=== PATIENT | male | born 1950 | race Caucasian/White ===

== ENCOUNTER 2018-08-23 05:35 | Inpatient (IN) ==
--- NOTE | 2018-08-06 15:19 | PAT Medication Instructions ---
Medication Instructions Date of Service August 06, 2018 Home Medications acetaminophen [Tylenol 8 Hour] 1,300 mg PO Q12H PRN aspirin [Aspirin Low Dose] 81 mg PO DAILY clopidogrel 75 mg PO QAM duloxetine 30 mg PO DAILY gabapentin 300 mg PO BID insulin glargine [Lantus U-100 Insulin] 30 unit SUBCUT BID metformin 1,000 mg PO BID ggjxymoe-kml-JW-lycopen-lutein [Centrum Silver Men] 1 tab PO HS naproxen sodium [Aleve] 220 mg PO BID PRN omeprazole 20 mg PO QAM sitagliptin [Januvia] 100 mg PO DAILY ASK your surgeon for instructions naproxen sodium [Aleve] 220 mg PO BID PRN ASK your prescriber and surgeon aspirin [Aspirin Low Dose] 81 mg PO DAILY clopidogrel 75 mg PO QAM DO NOT take the morning of surgery metformin 1,000 mg PO BID sitagliptin [Januvia] 100 mg PO DAILY Take morning of surgery With a small sip of water, OTHERWISE NOTHING TO EAT OR DRINK AFTER MIDNIGHT: acetaminophen [Tylenol 8 Hour] 1,300 mg PO Q12H PRN (okay to take up to 4 hours prior to surgery if needed) duloxetine 30 mg PO DAILY gabapentin 300 mg PO BID omeprazole 20 mg PO QAM Take evening before surgery acetaminophen [Tylenol 8 Hour] 1,300 mg PO Q12H PRN (if needed) gabapentin 300 mg PO BID insulin glargine [Lantus U-100 Insulin] 30 unit SUBCUT BID metformin 1,000 mg PO BID Centrum Silver Men 1 tab PO HS Insulin Dependent Diabetic Patients * Test your blood sugar the morning of surgery * If Blood Sugar is GREATER THAN 150, take HALF of your regular dose of: insulin glargine [Lantus U-100 Insulin] take 15 units * If Blood Sugar is LESS THAN 150, DO NOT TAKE ANY: insulin glargine [Lantus U- 100 Insulin] Other Notes If you have any questions please call us at [phone] or [phone] or [phone] or [phone]
--- NOTE | 2018-08-09 08:23 | Anesthesiology Consultation ---
Date of Service August 09, 2018 Assessment & Plan (1) Encounter for pre-operative examination: - No previous anesthesia records available. - Patient to hold ASA and Plavix for 7 days prior to surgery. Chart Review Chart Review: Acceptable Risk for Surgery and Patient seen in Pre Admission Testing Consults Requested medical & cardiac (Dr. Resendiz (08/13/18) & Dr. Elizabeth (06/18/18)) Patient was seen by cardio on 06/18 for follow up visit and preoperative evaluation. Per note from that visit, "Spine surgery is considered intermediate risk. The patient has had complete revascularization, making his risk of myocardial ischemia low. Will obtain echo to check EF. If not severely abnormal (it was 50-55%), then he will be considered low risk for cardiac complication of intended surgery. We will recommend he continue on beta fadi and statin perioperatively." Patient was seen by PCP on 08/13 for preoperative evaluation. Per note from that visit, "I agree with cardio the pt is intermediate risk for the upcoming procedure and recommend close cardiac monitoring in the perioperative period." Teaching & Discussion Pre-Anesthesia Teaching/Discussion Notes: Instructed NPO after midnight before surgery, except medications with 15 cc of water. Medication instructions provided according to the PAT guidelines. History Surgery Operation Date: 08/23/18 07:45 Proposed Procedures p L3-L5 Decompression and Fusion, Spinal Cord Monitoring - Vikas Castellon DO Height/Weight Height: 5 ft 8 in Weight: 101.7 kg Allergies Allergy/AdvReac Type Severity Reaction Status Date / Time No Known Allergies Allergy Verified 08/05/18 08:41 Medications Home Medications Medication Instructions Recorded Confirmed Last Taken acetaminophen [Tylenol 8 Hour] 1,300 mg PO Q12H PRN 08/05/18 08/05/18 Unknown aspirin [Aspirin Low Dose] 81 mg PO DAILY 08/05/18 08/05/18 Unknown clopidogrel 75 mg PO QAM 08/05/18 08/05/18 Unknown duloxetine 30 mg PO DAILY 08/05/18 08/05/18 Unknown gabapentin 300 mg PO BID 08/05/18 08/05/18 Unknown insulin glargine [Lantus U-100 30 unit SUBCUT BID 08/05/18 08/05/18 Unknown Insulin] metformin 1,000 mg PO BID 08/05/18 08/05/18 Unknown fawmbhyt-sca-WF-lycopen-lutein 1 tab PO HS 08/05/18 08/05/18 Unknown [Centrum Silver Men] naproxen sodium [Aleve] 220 mg PO BID PRN 08/05/18 08/05/18 Unknown omeprazole 20 mg PO QAM 08/05/18 08/05/18 Unknown sitagliptin [Januvia] 100 mg PO DAILY 08/05/18 08/05/18 Unknown Past Medical History Medical History CAD (coronary artery disease) STENTS X3 (07/2017)- ON PLAVIX Chronic back pain Degenerative disc disease Diabetes mellitus, type 2 IDDM GERD (gastroesophageal reflux disease) Myocardial Infarction 07/2017 Osteoarthritis Exercise / Class Metabolic Activity III < 4 Walking/Shop/Light housework (Limited due to back pain. 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 Able to slowly climb FOS. Denies CP or SOB. ) Past Family History Family History Grandmother Family history of diabetes mellitus Sister Family history of diabetes mellitus Past Surgical History Surgical History History of cardiac cath X3 STENTS - JULY 2017 History of cataract surgery History of cholecystectomy History of colonoscopy History of esophagogastroduodenoscopy (EGD) History of open reduction and internal fixation (ORIF) procedure ANKLE (LEFT) S/P trigger finger release LEFT 4TH Past Anesthesia History No Hx of Anesthesia Complications and No Family Hx of Anesthesia Complications History of PONV No Hx of PONV and Hx of Motion Sickness (Rarely) Social History Smoking Status: Never smoker Do You Dip or Chew Tobacco: No Hx Alcohol Use: Yes alcohol intake frequency: holidays/special occasions only Hx Substance Use: No substance use type: does not use Review of Systems Patient denies chest pain, shortness of breath, dyspnea on exertion, cough, wheezing, palpitations. +Joint Pain (Hands, Back, Legs) +Acid Reflux (controlled with current medications) Physical Exam Vital Signs BP: 150/83 P: 84 R: 16 T: 98.2 SPO2: 98% on RA Constitutional + obese ENMT Thyromental Distance: > or= 3.5 Finger Breadths (4) Mallampati Class: II Neck normal visual inspection, trachea midline and + facial hair (Advised - agreed to trim james); neck extension not limited Respiratory normal respiratory effort Auscultation: lungs clear to auscultation bilaterally Cardiovascular Rate/Rhythm: regular rate and regular rhythm Heart Sounds: no murmur Vessels: no carotid bruit Neurologic moves all extremities Psychiatric Orientation: alert and oriented x 3 Testing Laboratory Results 08/09/18 08:44 08/09/18 08:44 PT 10.3 Seconds (9.0-12.0) 08/09/18 08:44 INR 1.0 (0.9-1.1) 08/09/18 08:44 APTT 25.8 Seconds (21.0-31.0) 08/09/18 08:44 Hemoglobin A1c 7.0 % (4.5-5.6) H 08/09/18 08:44 Blood Type B Positive 08/09/18 08:44 Antibody Screen NEGATIVE 08/09/18 08:44 Electrocardiogram Date: 08/09/18 Findings: + NSR @ (91) Incomplete RBBB Chest X-Ray Date: 08/09/18 Findings: + NAD FINDINGS: Cardiomediastinal and hilar silhouettes are within normal limits. There is no pneumothorax, pleural effusion, focal airspace consolidation or overt pulmonary edema. Cholecystectomy clips noted about the upper abdomen. Degenerative changes of the shoulders and spine. IMPRESSION: No acute process. Echocardiogram Date: 07/14/18 EF: 50-55% Other Findings: + LVH (Moderate) Moderate LVH Normal wall motion Grossly normal left ventricular systolic function There is mild mitral regurgitation, trace to mild tricuspid regurgitation, and pulmonic insufficiency Normal pulmonary artery pressures Mild diastolic dysfunction with impaired relaxation (Grade I) Cardiac Catheterization Date: 08/02/17 Conclusion: 1. Multivessel CAD with borderline obstructive disease of the LAD, o bstructive disease of the OM2 and a subtotaled RCA. 2. Successful PCI and stenting of the proximal to mid RCA with a 2.5 x 30 drug-eluting stent. 3. Mild to moderately depressed LV function with estimated EF 40% and anterolateral hypokinesis. 4. No significant aortic stenosis by pullback technique. Complications: None Recommendations: 1. Dual antiplatelet therapy with aspirin and Brilinta for at least one year if not longer 2. Will most likely discharge and discuss options regarding the circumflex disease and LAD disease as an outpatient. Discussion with CT surgery and a heart team approach suggests that minimally invasive direct CABG of the LAD and diagonal is feasible. Could also consider stenting the circumflex.
--- NOTE | 2018-08-09 09:26 | XRay Report ---
XR chest Pre-admission PA/Lat HISTORY: 68 years-old Male pat preoperative exam. No acute chest complaints COMPARISON: None available TECHNIQUE: PA and lateral views of the chest FINDINGS: Cardiomediastinal and hilar silhouettes are within normal limits. There is no pneumothorax, pleural e ffusion, focal airspace consolidation or overt pulmonary edema. Cholecystectomy clips noted about the upper abdomen. Degenerative changes of the shoulders and spine. IMPRESSION: No acute process. The above report was generated using voice recognition software. It may contain grammatical, syntax o r spelling errors. Electronically signed by: Abel Dodd M.D. 08/09/2018 9:25 AM
[2018-08-09 12:34] LABS: Basophils # (auto) 0.03 K/uL (0-0.2); Basophils % (auto) 0.5 %; Eosinophils # (auto) 0.23 K/uL (0-0.5); Hematocrit (blood only) 38.6 % (42-52); Hemoglobin 13.3 g/dL (14.0-18.0); Immature Granulocytes # (auto) 0.01 K/uL (0.00-0.02); Immature Granulocytes % (auto) 0.2 %; Lymphocytes # (auto) 1.27 K/uL (1.2-3.4); Lymphocytes % (auto) 21.8 %; Mean Corpuscular Hgb Conc 34.5 g/dL (32-36); Mean Corpuscular Volume 91.7 fL (80-100); Mean Platelet Volume 10.4 fL (7.4-10.4); Monocytes # (auto) 0.58 K/uL (0.11-0.59); Neutrophils % (auto) 63.5 %; Platelet Count 214 K/uL (130-400); RDW Coefficient of Variation 13.2 % (11.5-14.5); RDW Standard Deviation 44.1 fL (36.4-46.3); Red Blood Count 4.21 M/uL (4.7-6.1); White Blood Count 5.82 K/uL (4.8-10.8)
[2018-08-09 12:39] LABS: BUN Creatinine Ratio 15.5 (10-20); Calcium 8.4 mg/dl (8.5-10.1); Creatinine Clr Calc Pharmacy 86.6 ml/min; Est GFR (African American) 93.9; Potassium 4.3 mmol/L (3.5-5.1)
[2018-08-09 12:52] LABS: Partial Thromboplastin Time 25.8 Seconds (21.0-31.0); Prothrombin Time 10.3 Seconds (9.0-12.0)
[2018-08-09 13:29] LABS: Estimated Average Glucose 154 mg/dl
[2018-08-23] MEDS ORDERED: LR 15ML/HR IV SCH (06:00)
[2018-08-23] MEDS ORDERED: CEFAZOLIN 2000MG 2,000 MG/15 ML SYR IV SCH (06:00)
[2018-08-23] MEDS ORDERED: ACETAMINOPHEN 500 MG TAB PO SCH (06:00)
[2018-08-23] MEDS ORDERED: CeleBREX 200 MG CAP PO SCH (06:00)
[2018-08-23] MEDS ORDERED: GABAPENTIN 300 MG CAP PO SCH (06:00)
[2018-08-23] MEDS ORDERED: MoRPHine SULFATE 10 MG/ML CARP/VIAL IV PRN (06:47)
[2018-08-23] MEDS ORDERED: ATROPINE SULFATE 0.1 MG/ML 10ML SYR IV PRN (06:47)
[2018-08-23] MEDS ORDERED: ePHEDrine sulfate 50 MG/ML AMP IV PRN (06:47)
[2018-08-23] MEDS ORDERED: fentaNYL citrate 100 MCG/2 ML VIAL IV PRN (06:47)
[2018-08-23] MEDS ORDERED: ONDANSETRON INJ 2 MG/ML 2 ML VIAL IV PRN ×2 (06:47→11:57)
[2018-08-23] MEDS ORDERED: MIDAZOLAM HCL 1 MG/ML 2ML VIAL ONE (06:50)
[2018-08-23] MEDS ORDERED: fentaNYL citrate 100 MCG/2 ML VIAL ONE ×2 (06:50→08:35)
[2018-08-23] MEDS ORDERED: BACITRACIN INJ 50,000 UNIT VIAL ONE (06:59)
[2018-08-23] MEDS ORDERED: BUPIVACAINE/EPINEPHRINE 0.5% MPF 1:200,000 30 ML VIAL ONE (06:59)
[2018-08-23] MEDS ORDERED: ASPIRIN 81 MG ECTAB PO ONE (07:34)
--- NOTE | 2018-08-23 07:43 | History & Physical Bridge Note ---
Date of Service August 23, 2018 History & Physical Bridge Note I have examined the patient, reviewed the History & Physical and in the interval since the performance of the History & Physical I have noted the following changes of clinical significance: no changes noted
--- NOTE | 2018-08-23 07:45 | History & Physical Report ---
Date of Service August 23, 2018 Assessment & Plan (1) Spinal stenosis, lumbar region with neurogenic claudication: L3-L5 decompression and fusion Present on Admission?: Yes History of Present Illness Chief Complaint: Back and bilateral leg pain Primary Care Provider: Joel Resendiz This is a 68-year-old male who presents with chronic persistent back and bilateral leg pain. After failing extensive course of nonoperative care is here for surgical intervention. Allergies Allergy/AdvReac Type Severity Reaction Status Date / Time No Known Allergies Allergy Verified 08/23/18 06:03 Home Medications Home Medications Medication Instructions Recorded Confirmed Type acetaminophen [Tylenol 8 Hour] 1,300 mg PO Q12H PRN 08/05/18 08/23/18 History aspirin [Aspirin Low Dose] 81 mg PO DAILY 08/05/18 08/23/18 History clopidogrel 75 mg PO QAM 08/05/18 08/23/18 History duloxetine 30 mg PO DAILY 08/05/18 08/05/18 History gabapentin 300 mg PO BID 08/05/18 08/05/18 History insulin glargine [Lantus U-100 15 unit SUBCUT BID 08/05/18 08/23/18 History Insulin] metformin 1,000 mg PO BID 08/05/18 08/23/18 History fvacgpvq-iuu-YH-lycopen-lutein 1 tab PO HS 08/05/18 08/23/18 History [Centrum Silver Men] naproxen sodium [Aleve] 220 mg PO BID PRN 08/05/18 08/23/18 History omeprazole 20 mg PO QAM 08/05/18 08/05/18 History sitagliptin [Januvia] 100 mg PO DAILY 08/05/18 08/05/18 History Past Med/Surg History Surgical History History of cardiac cath X3 STENTS - JULY 2017 History of cataract surgery History of cholecystectomy History of colonoscopy History of esophagogastroduodenoscopy (EGD) History of open reduction and internal fixation (ORIF) procedure ANKLE (LEFT) S/P trigger finger release LEFT 4TH Family History Grandmother Family history of diabetes mellitus Sister Family history of diabetes mellitus Social History Preferred Language: [place] Communication Ability: Effective Loss Control Consultant Required: No Beliefs That Will Affect Care: None Current Living Situation: Spouse Other Information That Helps Us Care for You: No Feels Safe at Home: Yes Safety Concerns: Feels Safe At This Time Smoking Status: Never smoker Do You Dip or Chew Tobacco: No Second Hand Exp osure: No Tobacco Cessation Education Requested by Patient: No Hx Alcohol Use: Yes Hx Substance Use: No Physical Exam Physical Exam: Patient is alert and oriented neurologically intact. Results & Data Vital Signs (Past 12 Hours) Vital Signs Temp Pulse Resp BP Pulse Ox 08/23/18 06:08 37.2 C 98 H 20 163/97 H 99
[2018-08-23] MEDS ORDERED: ALBUMIN HUMAN 5% 12.5 GM/250 ML VIAL IV ONE (08:26)
[2018-08-23] MEDS ORDERED: ROCURONIUM BROMIDE 10 MG/ML 5 ML VIAL ONE (08:34)
[2018-08-23] MEDS ORDERED: ONDANSETRON INJ 2 MG/ML 2 ML VIAL ONE (08:34)
[2018-08-23] MEDS ORDERED: ePHEDrine sulfate 50 MG/ML SYR ONE (08:34)
[2018-08-23] MEDS ORDERED: PROPOFOL IV EMULSION 10 MG/ML 20 ML VIAL IV ONE (08:34)
[2018-08-23] MEDS ORDERED: DEXAMETHASONE SOD INJ 4 MG/ML VIAL ONE (08:34)
[2018-08-23] MEDS ORDERED: PHENYLEPHRINE 100MCG/ML 5ML SYR ONE (08:34)
[2018-08-23] MEDS ORDERED: PHENYLEPHRINE HCL 10 MG/ML VIAL ONE (08:34)
[2018-08-23] MEDS ORDERED: LIDOCAINE HCL 2% 2 ML VIAL/AMP(20MG/ML) INFIL ONE (08:34)
[2018-08-23] MEDS ORDERED: HYDROmorphone INJ 2 MG/ML SYR/VIAL ONE (08:36)
[2018-08-23] MEDS ORDERED: GLYCOPYRROLATE 0.2 MG/ML VIAL ONE (09:04)
[2018-08-23] MEDS ORDERED: NEOSTIGMINE METHYLSULFATE 1 MG/ML 10ML VIAL ONE (09:04)
[2018-08-23] MEDS ORDERED: LARYING-O-JET KIT (LTA) ONE (09:55)
[2018-08-23] MEDS ORDERED: FLOSEAL HEMOSTATIC MATRIX 10ML TOP ONE (10:09)
--- NOTE | 2018-08-23 10:13 | Operative Report ---
Post Operative Report Pre & Post Diagnosis Operation Date: 08/23/18 07:45 Pre-Op Diagnosis: Spinal stenosis, lumbar region with neurogenic claudication Spondylolisthesis L3-4 Post-Op Diagnosis: Same Procedure Operation Date: 08/23/18 07:45 Actual Procedures #1 lumbar decompression with bilateral medial facetectomies and foraminotomies L2-3 L3-4 L4-5. #2 posterior spinal fusion L3-4 L4-5 per #3 placement posterior instrumentation L3-4 L4-5 per #4 interbody fusion L4-5 per #5 placement of titanium 11 x 26 mm cage 5 per #6 placement of local autograft in the posterior lateral gutters per #7 placement infuse collagen sponge, with master graft in the posterior lateral gutters and ostial amp and interbody space. Surgeon Vikas Castellon, DO Torch Solderer Demetria Collado Estimated Blood Loss 400 Findings See Below The patient is 5 foot 8 inches tall weighing 101.7 kg with a BMI of 34. Patient's significant body habitus contributed to significant technical difficulty requiring her deepest retractors and longer Kerrisons in order to perform his procedure. This added at least 30% increase in operative time. Specimens None Indications This is a 68-year-old male who presents with above-mentioned diagnosis after failing extensive course of nonoperative care is here for the above-mentioned procedure. Description of Procedure Patient was met with identified and informed consent obtained. Patient was then taken to the operative suite underwent intubation placed in a prone position the Omar table on top of the Kian frame. All bony prominences well-padded eyes inspected to ensure no external pressure placed upon. This point the lumbar spine was prepped and draped in the normal sterile fashion. Sharp dissection with the assistance of Bovie cautery was performed down to and exposing the lamina transverse processes of L3-L4 and L5 bilaterally. From a caudal cephalad fashion complete laminectomy of L4 L3 and partial laminectomy of L2 was performed including bilateral medial facetectomies and foraminotomies to address severe stenosis. Pedicle screws were then placed in L3-L4-L5 bilaterally with assistance of fluoroscopy and the probably size parul placed. By way of a transforaminal approach on the right complete discectomy of L3-4-5 was performed endplates curetted to subcortical bleeding bone and a 11 x 26 mm titanium cage filled ostium bone graft tapped in position. The rods were then locked in final position bilaterally. The transverse processes of L3 L4-5 bur to subcortical bleeding bone. Collagen sponge master graft local autograft placed in the posterior lateral gutters. Inserted. Incision was then closed with 1 Vicryl fascia 2-0 Vicryl subcutaneous and 4-0 Monocryl for final skin closure. Steri- Strip sterile dressings placed. Patient will continue to PACU stable condition. Please note Demetria Collado present on the entire procedure involved the patient positioning complex portions of the surgery and final skin closure. Lastly spinal cord monitoring was utilized and no changes noted. I attest to the content of the Intraoperative Record and any orders documented therein. Any exceptions are noted below.
--- NOTE | 2018-08-23 10:14 | Fluoroscopy Report ---
FL lumbar spine 2-3V CLINICAL HISTORY: 68 years-old Male presenting with L3-L5 DECOMP/FUSION. TECHNIQUE: 2 fluoroscopic image(s) recorded as part of an intraoperative procedure. COMPARISON: None. FINDINGS/IMPRESSION: Posterior bilateral transpedicular Schoenrock fixation of L3-L5 with interbody spacer at L4-5 and aguirre inectomy defects at L3 to L5. Please see surgical report for further details. Fluoroscopy dosage (mGy): 15.85. Fluoroscopy time: 18.5 seconds. Number or time of high level fluoroscopy (HLF), digital spot, or digital subtraction images: 0. Electronically signed by: Alejandro Shelby M.D. 08/23/2018 10:13 AM
[2018-08-23] MEDS ORDERED: METOPROLOL TARTRATE 1 MG/ML VIAL IV ONE (10:41)
[2018-08-23] MEDS ORDERED: METOPROLOL TARTRATE 1 MG/ML VIAL IV STA (11:04)
[2018-08-23] MEDS ORDERED: FAMOTIDINE 20 MG TAB PO PRN (11:57)
[2018-08-23] MEDS ORDERED: BISACODYL 10 MG SUPP PR PRN (11:57)
[2018-08-23] MEDS ORDERED: SOD PHOSPHATE/SOD BIPHOSPHATE ENEMA 132 ML BTL PR PRN (11:57)
[2018-08-23] MEDS ORDERED: ACETAMINOPHEN 1300 MG PO PRN (11:57)
[2018-08-23] MEDS ORDERED: ONDANSETRON 4 MG TAB PO PRN (11:57)
[2018-08-23] MEDS ORDERED: ALUMINUM/MAGNESIUM SUSP 30 ML UDC PO PRN (11:57)
[2018-08-23] MEDS ORDERED: LORazepam 0.5 MG TAB PO PRN (11:57)
[2018-08-23] MEDS ORDERED: DO NOT ADMINISTER PNEUMOCOCCAL VACCINE PRN (11:57)
[2018-08-23] MEDS ORDERED: HYDROmorphone INJ 0.5 MG/0.5 ML SYR IV PRN (11:57)
[2018-08-23] MEDS ORDERED: LORazepam 0.5 MG/1 ML VIAL IV PRN (11:57)
[2018-08-23] MEDS ORDERED: ACETAMINOPHEN 1,000 MG/100 ML VIAL IV PRN (11:57)
[2018-08-23] MEDS ORDERED: ACETAMINOPHEN 500 MG TAB PO PRN (11:57)
[2018-08-23] MEDS ORDERED: MAGNESIUM HYDROXIDE SUSP 30 ML UDC PO PRN (11:57)
[2018-08-23] MEDS ORDERED: PROMETHAZINE HCL 12.5 MG in SODIUM CHLORIDE 0.9% 50 ML IV PRN (11:57)
[2018-08-23] MEDS ORDERED: METOCLOPRAMIDE HCL INJ 5 MG/ML 2 ML VIAL IV PRN (11:57)
[2018-08-23] MEDS ORDERED: DO NOT ADMINISTER FLU VACCINE PRN (11:57)
[2018-08-23] MEDS: SODIUM CHLORIDE 0.9% 1000ML 1,000 ML IV SCH ×2 (12:55→19:51)
[2018-08-23] MEDS: OXYCODONE HCL IR 5 MG TAB (IMMEDIATE RELEASE) PO PRN (13:08)
[2018-08-23] MEDS: KETOROLAC TROMETHAMINE 15 MG/ML VIAL IV SCH ×3 (13:09→23:51)
[2018-08-23] MEDS ORDERED: GLUCOSE 10 TABS/TUBE PO PRN (13:18)
[2018-08-23] MEDS ORDERED: CARBOHYDRATES FOR HYPOGLYCEMIA PO PRN (13:18)
[2018-08-23] MEDS ORDERED: GLUCOSE 40% GEL 15 GM TUBE PO PRN (13:18)
[2018-08-23] MEDS ORDERED: DEXTROSE 50% 50 ML SYRINGE IV PRN (13:18)
[2018-08-23] MEDS ORDERED: GLUCAGON FOR INJ 1 MG VIAL SQ PRN (13:18)
[2018-08-23] MEDS ORDERED: ARTIFICIAL TEARS OPL PRN (13:43)
[2018-08-23] MEDS ORDERED: ARTIFICIAL TEARS OPL STA (13:45)
--- NOTE | 2018-08-23 14:25 | Consultation ---
Date of Consultation August 23, 2018 Assessment & Plan (1) Spinal stenosis, lumbar region with neurogenic claudication: Pt is POD #[address] Castellon: #1 lumbar decompression with bilateral medial facetectomies and foraminotomies L2-3 L3-4 L4-5. #2 posterior spinal fusion L3-4 L4-5 per #3 placement posterior instrumentation L3-4 L4-5 per #4 interbody fusion L4-5 per #5 placement of titanium 11 x 26 mm cage 5 per #6 placement of local autograft in the posterior lateral gutters per #7 placement infuse collagen sponge, with master graft in the posterior lateral gutters and ostial amp and interbody space. EBL 400 ml pt tolerated procedure well Pain/Wound management per ortho Activity and therapy as directed by ortho encourage incentive spirometry Follow H/H (2) CAD (coronary artery disease): No Chest pain/SOB Patient with history of CA S/P stent x3 in July 2017 continue ASA Resume plavix when appropriate by ortho Pt not on BB or LAUREEN therapy (3) Diabetes mellitus, type 2: Last A1c 7.0 Hold metformin and Januvia Reduce Lantus to 0-10 Units/Novolog per protocl titrate insulin as appropriate (4) Redness of left eye: No foreign body appreciated Minimal/mild left eye conjunctival injection sparing the limbus Placed on artificial tears 2 drops now and as needed Monitor closely (5) GERD (gastroesophageal reflux disease): Continue PPI (6) DVT prophylaxis: SCD/TEDS, ASA - per primary service Disposition: Per primary service Follow up: PCP Dr. Resendiz as outpatient Patient was seen and examined in collaboration with Dr. Holland, please see addendum Thank you for this consultation. We will follow the patient with you during their hospital stay. You [facility] a [facility] via pager @ [phone]. Supervising Physician Co-Signing Physician Notes HISTORY: Record reviewed. Patient interviewed and examined. Care coordinated with Megan Graf PA-C. Please refer to her documentation for patient's history. Briefly, 68 YO male with history of CAD (s/p drug-eluting stent last year), DM type 2, and other problems. Lumbar decompression / fusion performed today by Dr. Castellon. Doing well postoperatively. No chest pain, cough, SOB, nausea, vomiting. Pain well-controlled. EXAM: General- no distress Lungs- clear to auscultation; no respiratory distress Cardiovascular- RRR; no murmur; no gallop; no JVD; no pretibial edema Abdomen- + bowel sounds, soft, nontender Extremities- no cyanosis; no calf tenderness; SCD's applied Neuro- alert, oriented Skin- warm & dry DATA: Hemoglobin A1C 7.0 on 08/09. POC glucose 223 @ 12:00. Other lab studies as noted. Chest x-ray 08/09/18 did not show and significant findings. EKG performed 08/09/18 reviewed and demonstrated NSR at 90 / minute. ASSESSMENT AND PLAN: Doing well postoperatively. CAD, s/p PCI with drug eluting stent last year. Continue aspirin. Resume Plavix when OK from surgical perspective. DM type 2, managed with insulin, metformin, sitagliptin. Anticipate fluctuating blood sugars postop. Lantus / NovoLog per protocol. Please refer to BENNIE Graf's documentation for discussion of other issues. Thank you for this consultation. We will follow the patient with you during their hospital stay. My cell # is [phone]. Dr. Sorensen will be assuming medical management 08/24/18. You can reach a member of the [facility] Team 01/09 via pager @ [phone]. History of Present Illness Requesting Physician: Dr. Castellon Reason for Consultation: Postop medical management Attending Physician: Vikas Castellon, History of Present Illness This is a 68-year-old male who has a significant past medical history of CAD with history of LAVERN x3 in July/2017, T2DM, chronic back pain, GERD, OA DJD, DDD who presents to [facility] ED for elective lumbar procedure by Dr. Castellon. is at bedside. He underwent L3-5 decompression fusion and tolerated procedure well. He is complaining of left eye irritation, scratchy eye, "feels like there is something in my eye." Denies any change in vision, blurry vision, diplopia, pain at night, eye discharge. He denies any fever, chills, sweats, lightheadedness, dizziness, chest pain, shortness of breath, palpitations, nausea, vomiting, abdominal pain. He currently has Haskins catheter in place. Prior to arrival he denies any difficulty with bowel or bladder habits. His appetite is okay. Allergies Allergy/AdvReac Type Severity Reaction Status Date / Time No Known Allergies Allergy Verified 08/23/18 06:03 Home Medications Home Medications Medication Instructions Recorded Confirmed Type acetaminophen [Tylenol 8 Hour] 1,300 mg PO Q12H PRN 08/05/18 08/23/18 History aspirin [Aspirin Low Dose] 81 mg PO DAILY 08/05/18 08/23/18 History clopidogrel 75 mg PO QAM 08/05/18 08/23/18 History duloxetine 30 mg PO DAILY 08/05/18 08/05/18 History gabapentin 300 mg PO BID 08/05/18 08/05/18 History insulin glargine [Lantus U-100 15 unit SUBCUT BID 08/05/18 08/23/18 History Insulin] metformin 1,000 mg PO BID 08/05/18 08/23/18 History qreeioap-ffa-ZI-lycopen-lutein 1 tab PO HS 08/05/18 08/23/18 History [Centrum Silver Men] naproxen sodium [Aleve] 220 mg PO BID PRN 08/05/18 08/23/18 History omeprazole 20 mg PO QAM 08/05/18 08/05/18 History sitagliptin [Januvia] 100 mg PO DAILY 08/05/18 08/05/18 History oxycodone 5 mg PO Q4H PRN #30 tab 08/23/18 Rx tramadol 50 mg PO Q4H PRN #30 tab 08/23/18 Rx Patient History Medical History Diabetes mellitus, type 2 (Chronic) IDDM Myocardial Infarction (Chronic) 07/2017 GERD (gastroesophageal reflux disease) (Chronic) Chronic back pain (Chronic) Degenerative disc disease (Chronic) Osteoarthritis (Chronic) CAD (coronary artery disease) (Chronic) STENTS X3 (07/2017)- ON PLAVIX Surgical History History of cardiac cath (Chronic) X3 STENTS - JULY 2017 History of cataract surgery (Chronic) History of esophagogastroduodenoscopy (EGD) (Chronic) History of colonoscopy (Chronic) History of cholecystectomy (Chronic) S/P trigger finger release (Chronic) LEFT 4TH Family History Grandmother Family history of diabetes mellitus Sister Family history of diabetes mellitus Father Stroke, Onset Age: 70 Social History Preferred Language: Moldovan Communication Ability: Effective Swabber Required: No Beliefs That Will Affect Care: None Current Living Situation: Spouse Other Information That Helps Us Care for You: No Feels Safe at Home: Yes Safety Concerns: Feels Safe At This Time Smoking Status: Never smoker Do You Dip or Chew Tobacco: No Second Hand Exposure: No Tobacco Cessation Education Requested by Patient: No Hx Alcohol Use: Yes Hx Substance Use: No Review of Systems Review of Systems: As noted per HPI, 10 systems reviewed and negative unless noted above. Physical Exam Physical Exam: Gen: WD/WN, M, NAD, sitting up in bed, pleasant, conversing easily Head: Normocephalic, Atraumatic Eyes: Sclera normal, L minimal conjunctival injection, eyelid everted no foreign body, PERRLA, EOMI ENT: Gross hearing intact, normal pharynx, mucous membranes moist Neck: supple, no adenopathy, No JVD, no bruit, Resp: Clear to auscultation b/l, no wheeze, rales, rhonchi. Normal insp/exp effort, no accessory muscle use CV: Regular rate, regular rhythm, no murmur, rub, gallop, or ectopy Abd: +BS x 4, soft, nontender, nondistended Musculoskeletal: moves extremities active rom x 4, strength intact, good plastic boat buffer strength Extremities: scds/teds in place, No edema bilaterally Skin: warm, moist, no rash, negative turgor, cap refill < 2sec, lumbar dressing CDI, MALICK drain with serosang drainage Neuro: Alert and oriented x 3, speech normal, good mood/affect, cran nerve 2-12 intact grossly : +Haskins with yellow urine output Results & Data Vital Signs (Past 12 Hours) Vital Signs Temp Pulse Pulse Resp BP BP Pulse Ox 08/23/18 13:39 91 H 18 150/78 H 95 08/23/18 12:42 97 H 18 166/91 H 95 08/23/18 12:21 37.1 C 94 H 16 149/87 H 94 08/23/18 11:35 37.1 C 88 17 159/83 H 98 08/23/18 11:25 37.1 C 92 H 17 150/87 H 95 08/23/18 11:15 37.1 C 92 H 17 156/85 H 96 08/23/18 11:11 100 H 152/86 H 08/23/18 11:05 37.1 C 95 H 19 151/86 H 97 08/23/18 10:55 36.7 C 97 H 16 151/89 H 97 08/23/18 10:45 36.7 C 97 H 11 L 149/86 H 100 08/23/18 10:42 104 H 147/81 H 08/23/18 10:35 36.7 C 99 H 17 148/88 H 100 08/23/18 10:29 36.7 C 95 H 16 149/91 H 100 08/23/18 06:08 37.2 C 98 H 20 163/97 H 99 Laboratory Results Preoperative lab work include: CBC: WBC 5.82, H/H 13.3 and 38.6, platelet 204 BMP: Sodium 139, potassium 4.3, chloride 109, CO2 24, BUN 15, creatinine 0.97, glucose 160 A1c: 7.0 Diagnostic Findings CXR: FINDINGS: Cardiomediastinal and hilar silhouettes are within normal limits. There is no pneumothorax, pleural effusion, focal airspace consolidation or overt pulmonary edema. Cholecystectomy clips noted about the upper abdomen. Degenerative changes of the shoulders and spine. IMPRESSION: No acute process. Lumbar Spine Xray: FINDINGS/IMPRESSION: Posterior bilateral transpedicular Schoenrock fixation of L3-L5 with interbody spacer at L4-5 and laminectomy defects at L3 to L5. Medications Administered Sodium Chloride (Nss 1000ml) 1,000 mls @ 150 mls/hr IV .Q6H40M BRITTNEY Stop: 09/22/18 11:56 Last Admin: 08/23/18 12:55 Dose: 150 mls/hr Documented by: [id number] Ketorolac Tromethamine (Toradol) 15 mg IV Q6 BRITTNEY Stop: 08/24/18 06:01 Last Admin: 08/23/18 13:09 Dose: 15 mg Documented by: [id number] Oxycodone HCl (Roxicodone Immediate Rel) 5 - 10 mg PO Q4H PRN PRN Reason: Moderate-Severe Pain Stop: 09/06/18 11:56 Last Admin: 08/23/18 13:08 Dose: 10 mg Documented by: [id number] Discontinued Medications Acetaminophen (Tylenol) 1,000 mg PO PREOP BRITTNEY Stop: 08/23/18 18:00 Last Admin: 08/23/18 06:18 Dose: 1,000 mg Documented by: [id number] Artificial Tears (Artificial Tears) 2 drops OPL NOW STA Stop: 08/23/18 13:46 Last Admin: 08/23/18 13:49 Dose: 2 drops Documented by: [id number] Aspirin (Ecotrin Ectab) Confirm Administered Dose 81 mg PO .STK-MED ONE Stop: 08/23/18 07:35 Last Admin: 08/23/18 07:36 Dose: 81 mg Documented by: [id number] Bacitracin (Bacitracin) Confirm Administered Dose 50,000 units .ROUTE .STK-MED ONE Stop: 08/23/18 07:00 Last Admin: 08/23/18 08:58 Dose: 50,000 units Documented by: [id number] Bupivacaine HCl/Epinephrine Bitart (Sensorcaine/Epinephrine 0.5% Mpf 1:200,000) Confirm Administered Dose 30 ml .ROUTE .STK-MED ONE Stop: 08/23/18 07:00 Last Admin: 08/23/18 08:58 Dose: 30 ml Documented by: [id number] Celecoxib (Celebrex) 200 mg PO PREOP BRITTNEY Stop: 08/23/18 18:00 Last Admin: 08/23/18 06:18 Dose: 200 mg Documented by: [id number] Gabapentin (Neurontin) 300 mg PO PREOP BRITTNEY Stop: 08/23/18 18:00 Last Admin: 08/23/18 06:18 Dose: 300 mg Documented by: [id number] Lactated Ringer's (Lr) 1,000 mls @ 15 mls/hr IV .Q24H BRITTNEY Stop: 08/24/18 05:59 Last Infusion: 08/23/18 07:51 Dose: 0 mls/hr Documented by: [id number] Admin: 08/23/18 06:18 Dose: 15 mls/hr Documented by: [id number] Cefazolin Sodium (Ancef 2000mg) 2,000 mg in 15 mls @ 3.75 mls/min IV PREOP BRITTNEY; Protocol Stop: 08/23/18 18:00 Last Admin: 08/23/18 07:51 Dose: 3.75 mls/min Documented by: [id number] Metoprolol Tartrate (Lopressor) Confirm Administered Dose 5 mg IV .STK-MED ONE Stop: 08/23/18 10:42 Last Increment: 08/23/18 11:11 Dose: 2.5 mg Documented by: [id number] Increment: 08/23/18 10:42 Dose: 2.5 mg Documented by: [id number] Metoprolol Tartrate (Lopressor) 2.5 mg IV NOW STA Stop: 08/23/18 11:05 Last Admin: 08/23/18 12:07 Dose: Not Given Documented by: [id number] Miscellaneous (Floseal Hemostatic Matrix 10ml) 10 ml TOP ONCE ONE Stop: 08/23/18 10:10 Last Admin: 08/23/18 10:10 Dose: 21 ml Documented by: [id number] ECG Rhythm: normal sinus Findings: + RBBB (incomplete)
[2018-08-23] MEDS: TRAMADOL HCL 50 MG TABLET PO PRN (15:41)
[2018-08-23] MEDS: COUGH DROP (SUGAR FREE) LOZ 24 LOZ/1 BOX BUCCAL PRN ×3 (15:52→23:51)
[2018-08-23] MEDS: CEFAZOLIN 2000MG 2,000 MG/15 ML SYR IV SCH ×2 (16:22→23:51)
[2018-08-23] MEDS: INSULIN ASPART 100 UNITS/ML 3 ML PEN SC SCH ×2 (18:28→21:21)
[2018-08-23] MEDS ORDERED: INSULIN GLARGINE SOLOSTAR 100 UNITS/ML 3 ML PEN SC SCH ×2 (21:00)
[2018-08-23] MEDS: GABAPENTIN 300 MG CAP PO SCH (21:18)
[2018-08-23] MEDS: MULTIVITAMIN TAB PO SCH (21:18)
[2018-08-23] MEDS: INSULIN GLARGINE SOLOSTAR 100 UNITS/ML 3 ML PEN SC SCH (21:19)
[2018-08-23] MEDS: DOCUSATE SODIUM/SENNA 50/8.6MG TAB PO SCH (21:25)
[2018-08-24] MEDS: SODIUM CHLORIDE 0.9% 1000ML 1,000 ML IV SCH (02:15)
[2018-08-24] MEDS: OXYCODONE HCL IR 5 MG TAB (IMMEDIATE RELEASE) PO PRN ×4 (02:17→20:46)
[2018-08-24] MEDS: POLYETHYLENE (MIRALAX) 17 GM PACK PO SCH ×4 (05:53→23:27)
[2018-08-24] MEDS: KETOROLAC TROMETHAMINE 15 MG/ML VIAL IV SCH (05:54)
[2018-08-24 05:58] LABS: Basophils # (auto) 0.01 K/uL (0-0.2); Basophils % (auto) 0.1 %; Eosinophils # (auto) 0.01 K/uL (0-0.5); Eosinophils % (auto) 0.1 %; Hematocrit (blood only) 29.9 % (42-52); Hemoglobin 10.4 g/dL (14.0-18.0); Immature Granulocytes # (auto) 0.02 K/uL (0.00-0.02); Immature Granulocytes % (auto) 0.2 %; Lymphocytes # (auto) 1.25 K/uL (1.2-3.4); Lymphocytes % (auto) 12.3 %; Mean Corpuscular Hgb Conc 34.8 g/dL (32-36); Mean Platelet Volume 9.6 fL (7.4-10.4); Monocytes # (auto) 0.79 K/uL (0.11-0.59); Monocytes % (auto) 7.8 %; Neutrophils # (auto) 8.08 K/uL (1.4-6.5); Neutrophils % (auto) 79.5 %; Platelet Count 169 K/uL (130-400); RDW Coefficient of Variation 12.9 % (11.5-14.5); RDW Standard Deviation 43.7 fL (36.4-46.3); Red Blood Count 3.25 M/uL (4.7-6.1); White Blood Count 10.16 K/uL (4.8-10.8)
[2018-08-24 06:24] LABS: BUN Creatinine Ratio 18.8 (10-20); Calcium 7.4 mg/dl (8.5-10.1); Creatinine Clr Calc Pharmacy 82.3 ml/min; Est GFR (African American) 88.4; Est GFR (Non-African American) 76.2
--- NOTE | 2018-08-24 08:18 | Anesthesiology Progress Note ---
Date of Service August 24, 2018 Anesthesia Post Procedure Vital Signs Vital Signs: Temp Pulse Pulse Resp BP BP Pulse Ox 08/24/18 07:04 37.2 C 94 H 18 137/82 95 08/24/18 03:29 37.1 C 95 H 18 136/73 95 08/23/18 23:33 37.0 C 89 17 128/73 94 08/23/18 20:16 36.9 C 101 H 18 146/76 H 92 08/23/18 14:57 37.1 C 98 H 15 142/77 H 95 08/23/18 13:39 91 H 18 150/78 H 95 08/23/18 12:42 97 H 18 166/91 H 95 08/23/18 12:21 37.1 C 94 H 16 149/87 H 94 08/23/18 11:35 37.1 C 88 17 159/83 H 98 08/23/18 11:25 37.1 C 92 H 17 150/87 H 95 08/23/18 11:15 37.1 C 92 H 17 156/85 H 96 08/23/18 11:11 100 H 152/86 H 08/23/18 11:05 37.1 C 95 H 19 151/86 H 97 08/23/18 10:55 36.7 C 97 H 16 151/89 H 97 08/23/18 10:45 36.7 C 97 H 11 L 149/86 H 100 08/23/18 10:42 104 H 147/81 H 08/23/18 10:35 36.7 C 99 H 17 148/88 H 100 08/23/18 10:29 36.7 C 95 H 16 149/91 H 100 Pain Intensity Bilateral Lower Back: Pain Intensity: 5 Notes Mental Status: alert / awake / arousable and participated in evaluation Nausea / Vomiting: adequately controlled Pain: adequately controlled Airway Patency, RR, SpO2: stable & adequate BP & HR: stable & adequate Hydration State: stable & adequate
[2018-08-24] MEDS: DULOXETINE HCL 30 MG CAP PO SCH (08:46)
[2018-08-24] MEDS: ASPIRIN 81 MG ECTAB PO SCH (08:47)
[2018-08-24] MEDS: GABAPENTIN 300 MG CAP PO SCH ×2 (08:47→20:36)
[2018-08-24] MEDS: PANTOprazole 40 MG TAB PO SCH (08:47)
[2018-08-24] MEDS: INSULIN GLARGINE SOLOSTAR 100 UNITS/ML 3 ML PEN SC SCH ×2 (08:51→20:39)
[2018-08-24] MEDS: INSULIN ASPART 100 UNITS/ML 3 ML PEN SC SCH ×4 (08:52→20:39)
[2018-08-24] MEDS ORDERED: SITAGLIPTIN PHOSPHATE 100 MG TAB PO SCH (09:00)
--- NOTE | 2018-08-24 09:16 | Hospitalist Progress Note ---
Date of Service August 24, 2018 Assessment & Plan (1) Spinal stenosis, lumbar region with neurogenic claudication: - POD# 1 L3-L5 decompression and fusion by Dr. Castellon - activity and wound care orders as per ortho - pain control with bowel regimen - PT/OT - monitor H/H for acute blood loss anemia and transfuse blood products PRN - EBL 400 mL, drain output 686 mL to date - Hgb stable at 10.4 (2) CAD (coronary artery disease): -Appears stable, denies chest pain -history of [place] S/P stent x3 in July 2017 -continue ASA, resume plavix when appropriate by ortho -patient self stopped beta-fadi and statin secondary to side effects (3) Diabetes mellitus, type 2: -Last Hgb A1c 7.0 -Hold oral agents -Utilize Lantus sliding scale and NovoLog per protocol while hospitalized -Blood sugars with better controlled today (4) Redness of left eye: -Resolved -on artificial tears 2 drops as needed (5) GERD (gastroesophageal reflux disease): -Continue PPI (6) DVT prophylaxis: -TEDs/SCDs as per spine orthopedics Supervising Physician Co-Signing Physician Notes Patient is seen and examined at bedside. Back pain is controlled. Ambulating in hallways this morning. Denies any chest pain, shortness of breath, dizziness, abdominal pain. +flatus, no bowel movement yet. On exam patient is moderately built and nourished, no apparent distress, normocephalic atraumatic, lungs are clear to auscultation, S1-S2, no murmur, back-surgical site in dressing,+ drain, abdomen soft nontender, grossly no focal neurological deficits, no pedal edema. Patient is S/P lumbar decompression and fusion for spinal stenosis and neurogenic claudication POD#1. Postop acute blood loss anemia. Pain management, wound care, activity, DVT prophylaxis per primary team. Discussed the importance of being on beta-fadi, statins with history of coronary disease. Discussed alternative statin therapy given history of intolerance-myalgia to stains. I personally reviewed the record. Patient is interviewed and examined at bedside. Patient's care is coordinated with Naty Borges PHYSICAL EDUCATION AIDE. Please refer to the documentation above for details of patient's presentation and for discussion of other issues. Subjective Patient seen and examined. Sitting up in the chair, offers no complaints. Reports pain is well controlled. Denies chest pain and shortness of breath. Was up ambulating in the hallways yesterday. Passing flatus however no bowel movement. Denies abdominal pain or nausea. Haskins remains in place. Physical Exam Constitutional: WD/WN, vitals as above Respiratory: normal respiratory effort, lungs clear to auscultation Cardiovascular: Rate/Rhythm: regular rate and regular rhythm Vessels: normal peripheral pulses Extremities: no edema Gastrointestinal (Abdomen): Inspection/Auscultation: normal bowel sounds Percussion/Palpation: abdomen soft; abdomen nontender Musculoskeletal: S/P back surgery; surgical dressing dry and intact; drain in place draining bloody/serosanguineous drainage; pedal pushes and pulls strong bilaterally Psychiatric: A+Ox3, euthymic affect Results & Data Vital Signs (Past 12 Hours) Vital Signs Temp Pulse Resp BP Pulse Ox 08/24/18 07:04 37.2 C 94 H 18 137/82 95 08/24/18 03:29 37.1 C 95 H 18 136/73 95 08/23/18 23:33 37.0 C 89 17 128/73 94 Laboratory Results Short CBC 08/24/18 Range/Units 05:47 WBC 10.16 (4.8-10.8) K/uL Hgb 10.4 L (14.0-18.0) g/dL Hct 29.9 L (42-52) % Plt Count 169 (130-400) K/uL BMP 08/24/18 05:47 Sodium 141 Potassium 4.0 Chloride 110 H Carbon Dioxide 25 BUN 19 H Creatinine 1.02 Glucose 129 H Calcium 7.4 L
--- NOTE | 2018-08-24 09:48 | Orthopedic Progress Note ---
Date of Service August 24, 2018 Assessment & Plan (1) Spinal stenosis, lumbar region with neurogenic claudication: This time we will monitor his MALICK output advance physical therapy and possible discharge home the next few days. Present on Admission?: Yes Subjective Patient has marked improvement of his leg symptoms. Back pain is well controlled. Physical Exam Physical Exam: On exam he is ambulating with a narrow steady gait. Good strength testing. Results & Data Vital Signs (Past 12 Hours) Vital Signs Temp Pulse Resp BP Pulse Ox 08/24/18 07:04 37.2 C 94 H 18 137/82 95 08/24/18 03:29 37.1 C 95 H 18 136/73 95 08/23/18 23:33 37.0 C 89 17 128/73 94
[2018-08-24] MEDS: TRAMADOL HCL 50 MG TABLET PO PRN ×2 (15:21→23:34)
[2018-08-24] MEDS: DOCUSATE SODIUM/SENNA 50/8.6MG TAB PO SCH (20:36)
[2018-08-24] MEDS: MULTIVITAMIN TAB PO SCH (20:36)
[2018-08-25] MEDS: OXYCODONE HCL IR 5 MG TAB (IMMEDIATE RELEASE) PO PRN ×4 (01:42→23:45)
[2018-08-25] MEDS: POLYETHYLENE (MIRALAX) 17 GM PACK PO SCH ×4 (05:52→23:42)
[2018-08-25 06:37] LABS: Hematocrit (blood only) 32.1 % (42-52); Mean Corpuscular Hgb Conc 34.3 g/dL (32-36); Mean Platelet Volume 10.4 fL (7.4-10.4); Platelet Count 169 K/uL (130-400); RDW Coefficient of Variation 13.2 % (11.5-14.5); RDW Standard Deviation 44.2 fL (36.4-46.3); Red Blood Count 3.49 M/uL (4.7-6.1)
[2018-08-25 07:06] LABS: BUN Creatinine Ratio 19.4 (10-20); Calcium 7.8 mg/dl (8.5-10.1); Creatinine Clr Calc Pharmacy 86.6 ml/min; Est GFR (African American) 93.9; Potassium 4.4 mmol/L (3.5-5.1)
[2018-08-25] MEDS: INSULIN ASPART 100 UNITS/ML 3 ML PEN SC SCH ×4 (08:12→20:58)
[2018-08-25] MEDS: INSULIN GLARGINE SOLOSTAR 100 UNITS/ML 3 ML PEN SC SCH ×2 (08:13→20:57)
[2018-08-25] MEDS: PANTOprazole 40 MG TAB PO SCH (08:21)
[2018-08-25] MEDS: ASPIRIN 81 MG ECTAB PO SCH (08:21)
[2018-08-25] MEDS: GABAPENTIN 300 MG CAP PO SCH ×2 (08:21→20:46)
[2018-08-25] MEDS: DULOXETINE HCL 30 MG CAP PO SCH (08:21)
--- NOTE | 2018-08-25 10:45 | Hospitalist Progress Note ---
Date of Service August 25, 2018 Assessment & Plan (1) Spinal stenosis, lumbar region with neurogenic claudication: - POD#2 L3-L5 decompression and fusion by Dr. Castellon - activity,wound care and PT/OT orders as per ortho - pain control with bowel regimen - monitor H/H for acute blood loss anemia (hgb improved to 11 today) - EBL 400 mL, drain output 946 mL to date (2) CAD (coronary artery disease): -Appears stable, denies chest pain -history of [place] S/P stent x3 in July 2017 -continue ASA, resume plavix when appropriate by ortho -patient self stopped beta-fadi and statin secondary to side effects (3) Diabetes mellitus, type 2: -Last Hgb A1c 7.0 -Hold oral agents -Utilize Lantus sliding scale and NovoLog per protocol while hospitalized -BSGs slightly improved today (4) Redness of left eye: -Resolved -Artificial tears 2 drops as needed (5) GERD (gastroesophageal reflux disease): -Continue PPI (6) DVT prophylaxis: -TEDs/SCDs as per spine orthopedics Patient seen in collaboration with Dr. Sorensen. Please see addendum. Thank you for this consultation. We will follow the patient with you during their hospital stay. You [facility] via pager @ [phone]. Supervising Physician Co-Signing Physician Notes Patient is seen and examined at bedside. Back pain is well controlled. No new complaints. Denies any chest pain, shortness of breath, dizziness, abdominal pain. +flatus, no bowel movement this morning. On exam patient is moderately built and nourished, no apparent distress, normocephalic atraumatic, lungs are clear to auscultation, S1-S2, no murmur, back-surgical site in dressing,+ drain, abdomen soft nontender, grossly no focal neurological deficits, no pedal edema. Patient is S/P lumbar decompression and fusion for spinal stenosis and neurogenic claudication POD#2. Hb stable. Postop acute blood loss anemia. Pain management, wound care, activity, DVT prophylaxis per primary team. I personally reviewed the record. Patient is interviewed and examined at bedside. Patient's care is coordinated with Naty Borges NP. Please refer to the documentation above for details of patient's presentation and for discussion of other issues. Subjective Patient seen and examined. Feeling well today with minimal surgical site pain. Tolerated breakfast well but now has nausea. No vomiting or abdominal pain. Able to ambulate up and down stairs during PT today. Passing flatus but no BM yet. Denies fever, chills, headache, lightheadedness, chest pain, palpitations, sh ortness of breath, dysuria or diarrhea. Review of Systems Review of Systems: At least ten systems reviewed and negative except as noted in the HPI. Physical Exam Physical Exam: General Appearance: WD/WN, no apparent distress, resting comfortably Head: normocephalic, atraumatic Eyes: normal inspection, PERRL, EOMI ENT: hearing grossly normal, pharynx normal (moist mucous membranes) Neck: supple, no JVD, no adenopathy Respiratory/Chest: lungs clear to auscultation. No wheezes, rales or rhonci. No respiratory distress or accessory muscle use Cardiovascular: regular rate, rhythm, no murmur, normal peripheral pulses Abdomen/GI: normal bowel sounds, soft, non-tender to palpation Extremities/Musculoskelatal: Lumbosacral spine with dressing clean, dry, intact. MALICK drain visualized with serosanguineous output. No calf tenderness, normal capillary refill, no pedal edema Neurologic/Psych: alert, normal mood/affect, oriented x 3 Skin: normal color, warm/dry Results & Data Vital Signs (Past 12 Hours) Vital Signs Temp Pulse Pulse Resp BP Pulse Ox 08/25/18 06:14 37.3 C 99 H 17 140/90 93 08/25/18 01:30 78 158/84 H 08/24/18 23:49 36.8 C 79 18 160/91 H 95
--- NOTE | 2018-08-25 12:57 | Orthopedic Progress Note ---
Date of Service August 25, 2018 Assessment & Plan (1) Spinal stenosis, lumbar region with neurogenic claudication: This time would continue physical therapy monitor his MALICK output possibly discharge home tomorrow. Present on Admission?: Yes Subjective Patient's back pain is controlled leg symptoms markedly improved. Physical Exam Physical Exam: Patient is in the chair at the bedside. Is good strength testing. Results & Data Vital Signs (Past 12 Hours) Vital Signs Temp Pulse Pulse Resp BP Pulse Ox 08/25/18 06:14 37.3 C 99 H 17 140/90 93 08/25/18 01:30 78 158/84 H
[2018-08-25] MEDS: MULTIVITAMIN TAB PO SCH (20:46)
[2018-08-25] MEDS: DOCUSATE SODIUM/SENNA 50/8.6MG TAB PO SCH (20:47)
[2018-08-26] MEDS: POLYETHYLENE (MIRALAX) 17 GM PACK PO SCH (06:20)
[2018-08-26 06:51] LABS: Hemoglobin 11.3 g/dL (14.0-18.0); Mean Corpuscular Hgb Conc 35.3 g/dL (32-36); Mean Corpuscular Volume 90.4 fL (80-100); Mean Platelet Volume 10.2 fL (7.4-10.4); Platelet Count 180 K/uL (130-400); RDW Coefficient of Variation 12.8 % (11.5-14.5); RDW Standard Deviation 42.5 fL (36.4-46.3); Red Blood Count 3.54 M/uL (4.7-6.1)
[2018-08-26 07:28] LABS: BUN Creatinine Ratio 16.4 (10-20); Creatinine Clr Calc Pharmacy 101.2 ml/min; Est GFR (African American) 106.3; Est GFR (Non-African American) 91.7; Potassium 3.8 mmol/L (3.5-5.1)
[2018-08-26] MEDS: ASPIRIN 81 MG ECTAB PO SCH (07:54)
[2018-08-26] MEDS: GABAPENTIN 300 MG CAP PO SCH (07:54)
[2018-08-26] MEDS: DULOXETINE HCL 30 MG CAP PO SCH (07:54)
[2018-08-26] MEDS: PANTOprazole 40 MG TAB PO SCH (07:54)
--- NOTE | 2018-08-26 08:30 | Discharge Summary ---
Date of Service August 26, 2018 Admission HPI Per Admitting Provider This is a 68-year-old male who presents with chronic persistent back and bilateral leg pain. After failing extensive course of nonoperative care is here for surgical intervention. Principal Diagnosis Lumbar spinal stenosis with neurogenic claudication Discharge Data Allergies Allergy/AdvReac Type Severity Reaction Status Date / Time No Known Allergies Allergy Verified 08/23/18 06:03 Consultations 08/23/18 11:57 Consult Case Management - Discharge Planning Routine Consult Hospitalist Routine Procedures Performed Operation Date: 08/23/18 07:45 Actual Procedures p Decompression and Fusion L3-L5, Spinal Cord Monitoring, Application of bone morphogenetic gregorio Castellon DO Ordered Studies 08/23/18 06:49 US - OR guided needle placemen Routine US - OR guided needle placemen Routine 08/23/18 07:45 FL fluoroscopy <1hr Routine FL lumbar spine 2-3V Routine 08/23/18 07:53 US guide vascular access Stat Hospital Course (1) Spinal stenosis, lumbar region with neurogenic claudication: Patient underwent lumbar decompression fusion tolerated this well was taken to the orthopedic floor postoperatively. Postop day 1 he was up and ambulating progressed to postop day #2 MALICK drain decreasing probably postop day 3 he was feeling markedly improved subsequently discharged home. Discharge orders instructions from the chart for further review. Total Time Total Time Spent Total Time Spent (In Minutes): 20 minutes Discharge Plan Discharge Items Patient Disposition: Home - Self-Care Reason For Visit: LUMBAR SPINAL STENOSIS W/NEUROGENIC CLAUDICATION Discharge Diagnosis: Lumbar spinal stenosis with neurogenic claudication Discharge Goals: Improve function Activity: Per 'Additional Instructions' section Non-emergency contact: Primary Care Provider Call non-emergency contact if: you have any medication questions Follow-up/Referrals: Joel Resendiz [Primary Care Provider] - Diet: Regular Addtl Provider Instructions: ACTIVITY RECOMMENDATIONS: SELF CARE INSTRUCTIONS AFTER THORACIC/LUMBAR FUSIONS 1. You may walk to your tolerance. It is good exercise for your legs and back. Expect some back and intermittent leg aches and pains. 2. You may perform "counter-top" level activities (make a sandwich, ignacio with a project, etc.). 3. No bending or lifting of more than 10 pounds or back twisting of any nature (roll like a log when turning in bed). 4. You may ride in a car for 20-30 minutes at a time. No driving until after your first visit with your doctor. 5. Frequent changes of position and restricting sitting to 30 minutes at a time will help limit the amount of back spasms and stiffness you may experience. 6. You may discontinue the use of ambulatory aids (cane, crutches, etc.) once your strength and confidence allow. 7. You may independent agent music education the shower and let water strike your incision when you arrive home at least once daily. Do not take a tub bath, sit in a hot tub or go into a swimming pool until after your first recheck in the office. SPECIAL CARE INSTRUCTIONS: VERY IMPORTANT TO READ AND REVIEW A. Your surgical incision has been closed with a cosmetic suture under the skin that will dissolve in about 6 weeks. In 14 days, you can use a pair of clean scissors and cut the suture that is left outside of the skin at the ends of your incision. 1. The small skin tapes can be removed 7 days after surgery if they have not fallen off by that point. 2. You may keep the wound open to air as much as possible to promote healing after post-op day number 5 unless told otherwise by your doctor. 3. If you think the wound looks like it is becoming infected (redness or worsening drainage) and/or you are experiencing fever, chill or worsening back pain and muscle spasms, contact the office so that we may evaluate you as soon as possible. B. Complications are uncommon, but please contact us if you have any signs or symptoms of: 1. wound infection (fever higher than 102.5 degrees F, redness, separation of wound, drainage, or increasing pain from the incision) 2. blood clots in legs (pain, swelling, redness and warmth in legs) 3. urinary tract infection (fever higher than 102.5 degrees F, burning upon urination or increased frequency of urination) 4. nerve problems (inability to walk on your toes or heels, numbness, loss of bowel or bladder control) 5. any other symptoms that concern you C. Please call the office at if you have any concerns or questions about your operation or recovery. D. No smoking! Smoking drastically decreases the chance of a solid fusion. E. Do not take any anti-inflammatory medications (Indocin, Advil, Motrin, Aspirin, Naprosyn, etc.) as these may inhibit the chance of a solid fusion. Tylenol is okay to take for pain. MANAGING PAIN AFTER SPINAL SURGERY 1. Narcotic medication is intended for short-term use and will be provided for surgical pain. Surgical pain usually lasts for a period of 4-6 weeks. Narcotic medication includes Percocet, Vicodin, Darvocet, Tylenol #3 or Lortab. 2. Longer-term pain is more appropriately treated with non-narcotic medication such as Tylenol ES. 3. Muscle spasm is not appropriately treated with narcotics. Muscle relaxers such as Soma, Flexeril or Skelaxin can be used along with Tylenol ES. 4. Remember that we all live with some "aches and pains". This is not unusual or uncommon after an injury or as we get older. a. Back pain is expected and may include muscle spasms for 4 to 6 weeks after surgery. The pain should gradually improve. If the pain worsens for no apparent reason, please contact the office. b. Intermittent leg pain may also be experienced and should not be concerned about unless it worsens for no apparent reason. If so, please contact the office. 5. We will provide appropriate medication within the normal guidelines of their prescribed use. We will also be very cautious and aware of potential abuse and extended duration of patients' medication needs. a. Pain medications are for your comfort and to assist with sleep and rest so that the tissue can heal. They are not provided in order to return to normal activity and should not be used through the day. To do so or worsening pain at night can result from ongoing tissue damage and development of tolerance to the prescribed medicine. 6. Please allow 2-3 days to process refills. Prescriptions will not be mailed but must be picked up at the office. FOLLOW UP VISIT: Keep your scheduled follow-up appointment. Any questions, please call the office at . Prescriptions: New tramadol 50 mg Tablet 50 mg PO Q4H PRN (Reason: Pain, Moderate) Qty: 30 RF: 0 oxycodone 5 mg Tablet 5 mg PO Q4H PRN (Reason: Pain, Severe) Qty: 30 RF: 0 Continued Lantus U-100 Insulin 100 unit/mL Solution 15 unit SUBCUT BID RF: 0 clopidogrel 75 mg Tablet 75 mg PO QAM RF: 0 aspirin [Aspirin Low Dose] 81 mg Tablet,Delayed Release (Dr/Ec) 81 mg PO DAILY RF: 0 acetaminophen [Tylenol 8 Hour] 650 mg Tablet Extended Release 1,300 mg PO Q12H PRN (Reason: Pain) RF: 0 metformin 1,000 mg Tablet 1,000 mg PO BID RF: 0 omeprazole 20 mg Capsule,Delayed Release(Dr/Ec) 20 mg PO QAM RF: 0 gabapentin 100 mg Capsule 300 mg PO BID RF: 0 duloxetine 30 mg Capsule,Delayed Release(Dr/Ec) 30 mg PO DAILY RF: 0 Januvia 100 mg Tablet 100 mg PO DAILY RF: 0 Centrum Silver Men 300-600-300 mcg Tablet 1 tab PO HS RF: 0 naproxen sodium [Aleve] 220 mg Tablet 220 mg PO BID PRN (Reason: Pain) RF: 0 Stand-Alone Forms: [facility] Discharge Orders: Discharge Order (Routine); Ordered 08/26/18 Ordered By: Vikas Castellon Admission Data Admit Date/Time: 08/23/18 10:16 Attending Provider: Vikas Castellon Admit Provider: Vikas Castellon Primary Care Provider: Joel Resendiz Other Providers: Lonnie Sorensen Service: Surgical Services
[2018-08-26] MEDS: INSULIN ASPART 100 UNITS/ML 3 ML PEN SC SCH (08:32)
[2018-08-26] MEDS: INSULIN GLARGINE SOLOSTAR 100 UNITS/ML 3 ML PEN SC SCH (08:34)
== END 2018-08-26 09:56 | disposition home or self-care (01) | DRG 454 ==
LOC: ASU 05:35 → 3E 10:16